=== PATIENT | male | born 1960 | race Caucasian/White ===

== ENCOUNTER 2018-11-30 09:12 | Day surgery (SDC) | payer OTHER ==
[~2018-11-30] VITALS: Ht 172.7 cm; Wt 113.6 kg
[~2018-11-30 09:12] MED LIST: ASPI81TA26 PO; CARV25TA PO; INDO50CA11; JANU50TA25 PO; JANUMET; JARD1TAB3 PO; LIVA1TAB PO; LOSA100T50 PO; LR 1,000 ML IV ONE; NABU-126 PO; NAPR-885 PO; NATE120T4 PO; TEST30SO3; TRIA37.5 PO
[2018-11-30] MEDS ORDERED: ROPIvacaine 0.5% 30 ML INJECTION (J2795 PER 1MG) ONE (09:13)
[2018-11-30] MEDS ORDERED: dexameTHASONE 10 MG/1 ML VIAL PRES.FREE (J1100) ONE (09:13)
[2018-11-30] MEDS ORDERED: EPINEPHrine INJ 1 MG/ML 1ML AMP ONE (09:13)
[2018-11-30] MEDS ORDERED: LIDOCAINE 2% INJ 100 MG/5 ML SDV (FOR ANES.) As Ordered ONE (10:59)
[2018-11-30] MEDS ORDERED: fentaNYL 100 MCG/2 ML INJECTION (J3010) As Ordered ONE ×2 (10:59→11:31)
[2018-11-30] MEDS ORDERED: MIDAZOLAM INJ 2 MG/2 ML VIAL (J2250) As Ordered ONE ×2 (10:59→11:31)
[2018-11-30] MEDS ORDERED: ROCURONIUM BROMIDE 50 MG/5 ML VIAL As Ordered ONE (10:59)
[2018-11-30] MEDS ORDERED: PROPOFOL 200 MG/20 ML VIAL As Ordered ONE (10:59)
[2018-11-30] MEDS ORDERED: fentaNYL 100 MCG/2 ML INJECTION (J3010) IV ONE (12:30)
[2018-11-30] MEDS ORDERED: EPINEPHrine 1MG/ML INJ 30ML MD-VIAL As Ordered ONE (12:58)
[2018-11-30] MEDS ORDERED: MIDAZOLAM INJ 2 MG/2 ML VIAL (J2250) IV ONE (13:00)
[2018-11-30] MEDS ORDERED: dexameTHASONE 4 MG/ML 1ML VIAL (J1100) As Ordered ONE (13:28)
[2018-11-30] MEDS ORDERED: PHENYLephrine HCL 500 MCG/5 ML (100MCG/ML) SYRINGE (J2370) As Ordered ONE ×2 (13:38→14:12)
[2018-11-30] MEDS ORDERED: PHENYLEPHRINE INJ 10MG/ML VIAL (J2370) As Ordered ONE ×2 (13:48→13:54)
[2018-11-30] MEDS ORDERED: ePHEDrine SULFATE 25 MG/5 ML(5MG/ML) SYRINGE As Ordered ONE (13:58)
[2018-11-30] MEDS ORDERED: SUGAMMADEX SODIUM 500 MG/5 ML VIAL (BRIDION) As Ordered ONE (14:22)
[2018-11-30] MEDS ORDERED: ONDANSETRON 4MG/2ML VIAL (J2405) As Ordered ONE (14:22)
[2018-11-30] MEDS ORDERED: ONDANSETRON 4MG/2ML VIAL (J2405) IV PRN (16:00)
[2018-11-30] MEDS ORDERED: NORCO, ANEXSIA 5/325MG TABLET (HYDROcodone/ACETAMINOPHEN) PO PRN ×3 (16:00→16:15)
[2018-11-30] MEDS ORDERED: fentaNYL 100 MCG/2 ML INJECTION (J3010) IV PRN (16:00)
[2018-11-30] MEDS ORDERED: LR 1,000 ML IV SCH ×2 (16:00→16:15)
[2018-11-30] MEDS ORDERED: MORPHINE 4 MG/ML 1ML VIAL/SYRINGE (J2270) IV PRN (16:15)
[2018-11-30 17:15] VITALS: BP 132/76
--- NOTE | 2018-11-30 17:25 | RO ---
DATE OF PROCEDURE: 11/30/2018 PREPROCEDURE DIAGNOSIS: Massive right rotator cuff tear. POSTPROCEDURE DIAGNOSIS: Massive right rotator cuff tear. PROCEDURE: Rotator cuff repair arthroscopically. SURGEON: Dr. Lamar Connors STRUCTURAL LAYOUT WORKER: Mr. Reyes Mendoza ANESTHESIA: Right interscalene nerve block with a general endotracheal tube anesthetic. COMPLICATIONS: None. FINDINGS: He had a complete rupture, which appeared to be relatively acute. There was an avulsion of the biceps, and there was also an avulsion of the supraspinatus tendon quite evident. There was some glenohumeral degenerative change but not bone on bone. I was able to actually get the rotator cuff back repaired with a SpeedBridge technique. SPECIMENS: None. ESTIMATED BLOOD LOSS: None. COMPLICATIONS: None. DESCRIPTION OF PROCEDURE: Antibiotics were given intravenously preoperatively and then a successful right interscalene nerve block and then a general endotracheal tube anesthetic was established. He was placed in a semi- beach chair position. The SeptRx shoulder nichols was utilized. The right shoulder area was carefully prepped and draped in the usual sterile fashion. Then, after appropriate time-out, routine diagnostic arthroscopy was performed through a posterior portal with the findings as noted above. The biceps tendon stub was debrided away with the ablator wand and the shaver. The rotator cuff tear was readily identifiable. There was no other intraarticular pathology identifiable that we could treat arthroscopically. Thus, we placed the scope in the subacromial space. I did move my visualization portal from a bit more lateral from posterior using a spinal needle and a switching stick technique. We debrided the undersurface of the acromion with the ablator wand, debrided the bursal tissues back to the acromioclavicular (AC) joint. Eventually, good visualization was obtained. There was just basically a bare footprint for the supraspinatus and tendon insertion point. A cannula was established laterally, and then we debrided the supraspinatus footprint with a shaver and a ring curette. And then I placed two medial row anchors from the SpeedBridge kit using the punch and the spinal needle to localize appropriate position. I then passed both of the FiberTape loops out using the Sellboxion suture passer by passing through the lateral cannula, and I also passed each of the retention sutures individually such that I had four strands from each anchor up through the rotator cuff. The FiberTapes were then split outside the joint and then I first placed the anterolateral row by grabbing one limb from each anchor and brought them out through the lateral cannula, loaded them on the SwiveLock device and then appropriately positioned the punch anteromedially and then inserted the anchor, making sure we had good tension on all four limbs of the sutures and then inserted the anchor. The remaining four limbs were then passed out through the lateral cannula, loaded onto the posterolateral SwiveLock, then the punch was placed in appropriate position and then the anchor inserted. Then, again, we made sure we had good tension on all four limbs and then inserted the anchor. This provided a nice watertight closure of the rotator cuff tear, which was photographed. There was still a bit of an opening at the rotator interval. Finding no other arthroscopically treatable pathology, we copiously irrigated out the subacromial space and all limbs were cut short, and we closed the skin portals with interrupted nylon sutures, covered by Adaptic, dry sterile bulky dressings, abductor pillow brace and sling was then applied. Then, he was awakened from general endotracheal tube anesthesia after having tolerated the procedure well, and transferred to the recovery room in stable condition. There were no intraoperative complications. Mr. Reyes Mendoza, my marketing administrative assistant, was critical to the success of this difficult surgery by helping to hold the scope, helped to drive and pass sutures, close the wound, position the patient, amongst many other tasks and helped me to perform the operation smoothly, efficiently, and safely.
== END 2018-11-30 17:20 | disposition home or self-care (01) ==
LOC: M SDC 09:12
PROVIDERS: ATTEND Orthopaedic Surgery
DX: M75.121 Complete rotator cuff tear or rupture of right shoulder, not specified as traumatic (principal); E11.9 Type 2 diabetes mellitus without complications; I10 Essential (primary) hypertension; G47.30 Sleep apnea, unspecified; Z79.82 Long term (current) use of aspirin; Z79.899 Other long term (current) drug therapy
CPT/HCPCS: 29827; 64415; C1713; J0690; J1100; J2250; J2370; J2405; J2795; J3010

== ENCOUNTER → 2023-10-29 | Outpatient (CLI) | payer MEDICARE, OTHER ==
[~2023-10-29] MED LIST changes: -INDO50CA11; +INDO50CA91; +LOSA100T46 PO; -LOSA100T50 PO; -LR 1,000 ML IV ONE; -NABU-126 PO; +NABU-71 PO
== END ==
LOC: M RAD 12:09
PROVIDERS: ATTEND Family Medicine
DX: M25.571 Pain in right ankle and joints of right foot (principal); M25.551 Pain in right hip; M54.16 Radiculopathy, lumbar region; M47.896 Other spondylosis, lumbar region